=== PATIENT | female | born 1950 | race Two or more races ===

== ENCOUNTER 2017-04-18 14:10 | Emergency (ER) | payer MEDICARE, OTHER ==
[~2017-04-18] VITALS: Ht 160 cm; Wt 73.4 kg
[~2017-04-18 14:10] MED LIST: ALPR.25; EYE GTTS; PROT40TA PO; ZOLO20CO PO
[2017-04-18 14:15] VITALS: BP 182/79; PULSE 74; RESP 16; TEMP 97.6; O2SAT 97
[2017-04-18] MEDS ORDERED: GLAUCOMA GTTS (14:23)
[2017-04-18] MEDS ORDERED: ALPR.5 PO (14:23)
[2017-04-18] MEDS ORDERED: ZOLO50TA PO (14:23)
[2017-04-18] MEDS ORDERED: MEDR4PAK PO (14:33)
[2017-04-18] MEDS ORDERED: BENZ100 PO (14:33)
[2017-04-18] MEDS ORDERED: AMOX875T PO (14:33)
--- NOTE | 2017-04-18 14:38 | PD ---
HPI Chief Complaint: Cold / Flu Symptoms Time Seen by Provider: 14:19 Travel History International Travel<30 days: No Contact w/Intl Traveler<30days: No Traveled to known affect area: No History of Present Illness HPI 67-year-old female that presents to the ED for evaluation of cold-like symptoms. Patient has had cold like symptoms for about 2 weeks now. Per patient she was seen at urgent care and was treated for the flu with Tamiflu. She is finish the medication since and she states that for the most part she is doing okay except that she's been having sinus congestion and right ear pain. No other medical issues. She states having some cough and causes her to choke. She states having some chest congestion. Allergy to naproxen. Has not seen anybody else for this. Per patient she has finished the Tamiflu. No fevers chills or sweats. No other medical issues at this time. No urinary or bowel movement issues. No abdominal pain. No chest pain. PFSH Past Medical History Arthritis: Yes Blood Disorders: No Anxiety: Yes Depression: Yes Cancer: No Cardiovascular Problems: Yes High Cholesterol: Yes Diabetes: No Diminished Hearing: No Endocrine: No Gastrointestinal Disorders: Yes (CONSTIPATION) GERD: Yes Genitourinary: No Hiatal Hernia: Yes Hypertension: Yes Immune Disorder: No Musculoskeletal: Yes Neurologic: No Psychiatric: Yes Reproductive: No Respiratory: No Tetanus Vaccination: < 5 Years ?: Not Menopausal: Yes Tubal Ligation: Yes Past Surgical History AICD: No Arteriovenous Shunt: No Body Medical Devices: IMPLANT FOR OS FOR GLAUCOMA DRAINING Eye Surgery: Yes (CORNEAL IMPLANT) Gynecologic Surgery: Yes (TUBAL, LEFT LUMPECTOMY) Insulin Pump: No Joint Replacement: No Other Surgery: Yes Social History Alcohol Use: Yes (SOCIALLY) Tobacco Use: No Substance Use: No Allergies-Medications (Allergen,Severity, Reaction): Coded Allergies: naproxen (Unverified Allergy, Severe, HIVES, 04/18/17) Reported Meds & Prescriptions Reported Meds & Active Scripts Active Tessalon Perles (Benzonatate) 100 Mg Cap 100 Mg PO TID PRN Medrol Dosepak (Methylprednisolone) 4 Mg Dspk 4 Mg PO DIRECTED Per Pharmacist direction Amoxicillin 875 Mg Tab 875 Mg PO BID 10 Days Reported [Glaucoma Gtts] Xanax (Alprazolam) 0.5 Mg Tab 0.5 Mg PO BID PRN Zoloft (Sertraline HCl) 50 Mg Tab 50 Mg PO DAILY Review of Systems Except as stated in HPI: all other systems reviewed are Neg Physical Exam Narrative GENERAL: Well-nourished, well-developed patient in no apparent distress. SKIN: Warm and dry. HEAD: Atraumatic. Normocephalic. EYES: Pupils equal and round reactive to light and accommodation. No scleral icterus. No injection or drainage. ENT: No nasal bleeding or discharge. Mucous membranes pink and moist. TMs are clear with no sign of infection or perforation. No mastoid tenderness. Ear canals are intact bilaterally. No lymphadenopathy. Nostril mucosa is red and moist with clear mucus noted. sinus tenderness to palpation noted. Tonsils are not enlarged or swollen. No ulvua Deviation. Tongue is midline. NECK: Trachea midline. No JVD. No meningeal signs noted CARDIOVASCULAR: Regular rate and rhythm. RESPIRATORY: No accessory muscle use. Clear to auscultation. Breath sounds equal bilaterally. GASTROINTESTINAL: Abdomen soft, non-tender, nondistended. Hepatic and splenic margins not palpable. MUSCULOSKELETAL: Extremities without clubbing, cyanosis, or edema. No obvious deformities. NEUROLOGICAL: Awake and alert. No obvious cranial nerve deficits. Motor grossly within normal limits. Five out of 5 muscle strength in the arms and legs. Normal speech. PSYCHIATRIC: Appropriate mood and affect; insight and judgment normal. Data Data Last Documented VS Vital Signs Date Time Temp Pulse Resp B/P (MAP) Pulse Ox O2 Delivery O2 Flow Rate FiO2 04/18/17 14:15 97.6 74 16 182/79 (113) 97 Orders Orders Ed Discharge Order (04/18/17 14:34) [facility] Medical Decision Making Medical Screen Exam Complete: Yes Emergency Medical Condition: Yes Medical Record Reviewed: Yes Differential Diagnosis Sinusitis versus bronchitis versus URI Narrative Course 67-year-old female that presents to the ED for worsening Symptoms. Patient was properly examined and was found to have signs and symptoms consistent appears to be sinusitis. Patient treated for this with amoxicillin and Tessalon Perles and Medrol Dosepak. Told to follow up with PCP. See ED worsening symptoms. Diagnosis Primary Impression: Acute maxillary sinusitis Qualified Codes: J01.00 - Acute maxillary sinusitis, unspecified Patient Instructions: General Instructions Additional Instructions: Motrin and Tylenol for pain and fever. You can use [id number] antihistamine as well as well as Mucinex as needed for runny nose and congestion. Cough drops for cough as needed. Drink plenty of fluids. Follow-up with PCP. See ED for worsening symptoms. Med/Other Pt SpecificInfo: Prescription(s) given Scripts Benzonatate (Tessalon Perles) 100 Mg Cap 100 MG PO TID Y for COUGH, #20 CAP 0 Refills Prov: Ermelinda Weeks DO 04/18/17 Methylprednisolone Dosepak (Medrol Dosepak) 4 Mg Dspk 4 MG PO DIRECTED, #1 DSPK 0 Refills Per Pharmacist direction Prov: Ermelinda Weeks DO 04/18/17 Amoxicillin (Amoxicillin) 875 Mg Tab 875 MG PO BID for Infection for 10 Days, #20 TAB 0 Refills Prov: Ermelinda Weeks DO 04/18/17 Disposition: 01 DISCHARGE HOME Condition: Stable Andriy Calvillo Apr 18, 2017 14:37
== END 2017-04-18 14:55 | disposition home or self-care (01) ==
LOC: PHEFT 14:10
DX: J01.00 Acute maxillary sinusitis, unspecified (principal)
CPT/HCPCS: 99283